=== PATIENT | female | born 1960 | race Caucasian/White ===

== ENCOUNTER 2021-07-29 06:53 | Day surgery (SDC) | payer BC ==
[2021-07-28 09:09] VITALS: BP 167/87
[~2021-07-29] VITALS: Ht 154.9 cm; Wt 66.7 kg
[2021-07-29] VITALS (14 sets, daily range): BP systolic 111–153; BP diastolic 64–90
[~2021-07-29 06:53] MED LIST: FLUO10TA3 PO; IBUP-2733 PO; LANS15CA13 PO; LEVO25CA4 PO
[2021-07-29] MEDS ORDERED: MIDAZOLAM HCL 1 MG/ML 2ML VIAL ONE (07:30)
[2021-07-29] MEDS ORDERED: PROPOFOL 10 MG/ML 20ML VIAL IV ONE (07:30)
[2021-07-29] MEDS ORDERED: MEPERIDINE-PF 25 MG/ML SYG ONE (07:31)
[2021-07-29 07:32] LABS: BASOPHILS % (AUTO) 1.7 % (0.0-5.0); EOSINOPHILS % (AUTO) 8.9 % (0.0-8.0); HEMATOCRIT 29.2 % (36-48); LYMPHOCYTES % (AUTO) 40.5 % (21.0-51.0); MEAN CORPUSCULAR HEMOGLOBIN 26.2 pg (27.0-33.0); MEAN CORPUSCULAR HGB CONC 31.2 g/dL (32.0-36.0); MEAN CORPUSCULAR VOLUME 84.1 fL (79-99); MONOCYTES % (AUTO) 11.8 % (3.0-13.0); NEUTROPHILS % (AUTO) 36.9 % (40.0-77.0); PLATELET COUNT (AUTO) 315 K/uL (130-400); RED BLOOD CELL COUNT(AUTO) 3.47 MIL/uL (4.00-5.50); RED CELL DISTRIBUTION WIDTH 17.4 % (11.0-15.5); WHITE BLOOD COUNT (AUTO) 4.6 K/uL (4.8-10.8)
[2021-07-29] MEDS ORDERED: FENTANYL CITRATE PF 50 MCG/1 ML 5ML AMP IV ONE (07:33)
[2021-07-29] MEDS ORDERED: LACTATED RINGERS 1000ML 1,000 ML IV ONE (07:47)
[2021-07-29] MEDS ORDERED: ROCURONIUM 10MG/1ML SYR 10 MG/ML ML ONE ×2 (07:54→08:24)
[2021-07-29] MEDS: CALDOLOR 800MG+NS 250ML 250 ML IV PRN ×2 (08:07→08:15)
[2021-07-29] MEDS: CEFAZOLIN SODIUM 1 GM VIAL ONE ×2 (08:08→08:25)
[2021-07-30] MEDS ORDERED: LACTATED RINGERS 1000ML 1,000 ML IV SCH (08:00)
[2021-07-30] MEDS ORDERED: CEFAZOLIN SODIUM 1 GM VIAL IVP ONE (08:00)
== END 2021-07-29 10:10 | disposition home or self-care (01) ==
LOC: DAH 06:53 → SUH 06:53
PROVIDERS: ATTEND Obstetrics & Gynecology
DX: N95.0 Postmenopausal bleeding (principal); Z20.822 Contact with and (suspected) exposure to COVID-19; N84.0 Polyp of corpus uteri; N81.4 Uterovaginal prolapse, unspecified; F41.9 Anxiety disorder, unspecified; F32.9 Major depressive disorder, single episode, unspecified; E03.9 Hypothyroidism, unspecified; I48.91 Unspecified atrial fibrillation; K21.9 Gastro-esophageal reflux disease without esophagitis; M19.90 Unspecified osteoarthritis, unspecified site; Z98.84 Bariatric surgery status; Z98.890 Other specified postprocedural states; Z83.438 Family history of other disorder of lipoprotein metabolism and other lipidemia; Z83.42 Family history of familial hypercholesterolemia; Z80.8 Family history of malignant neoplasm of other organs or systems; Z82.49 Family history of ischemic heart disease and other diseases of the circulatory system; Z83.3 Family history of diabetes mellitus; Z79.899 Other long term (current) drug therapy; Z79.890 Hormone replacement therapy
CPT/HCPCS: 36415; 58558; 85025; 86850; 86900; 86901; 87635; A4215; A4221; A4222; A4223; A4351; A4355; A4663; A6260; C9803; J0690; J1741; J2175; J2250; J2704; J3010; J7030 ×2; J7120

== ENCOUNTER 2022-06-24 20:02 | Inpatient (IN) | payer BC ==
[~2022-06-24] VITALS: Ht 160 cm; Wt 68.1 kg
[2022-06-24 20:32] LABS: BILIRUBIN,URINE SMALL (NEGATIVE); GLUCOSE, URINE (UA) NEGATIVE (NEGATIVE); KETONES,URINE 5 mg/dL (NEGATIVE); LEUKOCYTE ESTERASE ,URINE MODERATE (NEGATIVE); NITRATE,URINE NEGATIVE (NEGATIVE); OCCULT BLOOD,URINE LARGE (NEGATIVE); PH,URINE 6.5 (5.0-8.0); PROTEIN,URINE 100 mg/dL (NEGATIVE); UROBILINOGEN,URINE 0.2 mg/dL (0.2-1.0)
[2022-06-24 20:36] LABS: APPEARANCE,URINE CLOUDY (CLEAR); COLOR,URINE ORANGE (YELLOW)
[2022-06-24 20:37] LABS: BASOPHILS % (AUTO) 1.1 % (0.0-5.0); EOSINOPHILS % (AUTO) 7.4 % (0.0-8.0); HEMATOCRIT 25.3 % (36-48); LYMPHOCYTES % (AUTO) 33.4 % (21.0-51.0); MEAN CORPUSCULAR HEMOGLOBIN 20.7 pg (27.0-33.0); MEAN CORPUSCULAR HGB CONC 28.9 g/dL (32.0-36.0); MEAN CORPUSCULAR VOLUME 71.7 fL (79-99); MONOCYTES % (AUTO) 10.8 % (3.0-13.0); NEUTROPHILS % (AUTO) 47.1 % (40.0-77.0); PLATELET COUNT (AUTO) 436 K/uL (130-400); RED BLOOD CELL COUNT(AUTO) 3.53 MIL/uL (4.00-5.50); RED CELL DISTRIBUTION WIDTH 23.6 % (11.0-15.5); WHITE BLOOD COUNT (AUTO) 6.2 K/uL (4.8-10.8)
[2022-06-24 20:45] LABS: BACTERIA,URINE Few /HPF (None Seen); RBC,URINE >100 /HPF (0-1); WBC,URINE 26-50 /HPF (0-1)
[2022-06-24] MEDS ORDERED: 0.9% NACL 500ML IV.SOLN 500 ML IV ONE (21:00)
[2022-06-24] MEDS ORDERED: KETOROLAC 15MG/ML VIAL (15MG/ML) IV ONE (21:00)
[2022-06-24] MEDS ORDERED: CEFTRIAXONE 1G VIAL IVP ONE (21:00)
[2022-06-24 21:25] LABS: CREATININE 0.7 mg/dL (0.5-1.5); POTASSIUM 3.3 mmol/L (3.5-5.1)
[2022-06-24 21:34] LABS: ALBUMIN 3.2 g/dL (3.5-5.0); TOTAL PROTEIN, SERUM 6.5 g/dL (6.0-8.3)
[2022-06-24] MEDS ORDERED: TRAMADOL HCL 50 MG TABLET PO PRN (22:30)
[2022-06-24] MEDS ORDERED: MAG/ALUM/SIMETH 30 ML UDCUP PO PRN (22:30)
[2022-06-24] MEDS ORDERED: MORPHINE 4 MG SYG IV PRN (22:30)
[2022-06-24] MEDS ORDERED: KCL 20 MEQ ERTAB PO ONE (22:30)
[2022-06-24] MEDS ORDERED: ACETAMINOPHEN 325 MG TAB PO PRN ×2 (22:30)
[2022-06-24] MEDS: CEFTRIAXONE 1G VIAL IV SCH (22:30)
[2022-06-24] MEDS ORDERED: GUAIFENESIN-DM 200/20 MG 10 ML PO PRN (22:30)
[2022-06-24] MEDS ORDERED: ZOLPIDEM TARTRATE 5 MG TAB PO PRN (22:30)
[2022-06-24] MEDS ORDERED: DiphenhydrAMINE HCL 50 MG/ML VIAL IV PRN (22:30)
[2022-06-24] MEDS ORDERED: ONDANSETRON 4MG INJ IV PRN (22:30)
[2022-06-24] MEDS ORDERED: LACTULOSE 20 GM/30 ML UDCUP PO PRN (22:30)
[2022-06-24] MEDS: 0.9%NACL 1000ML 1,000 ML IV SCH (22:44)
[2022-06-24] MEDS ORDERED: TAMS-1 PO (23:19)
[2022-06-24] MEDS ORDERED: FAMO40TA7 PO (23:19)
[2022-06-24] MEDS ORDERED: LEVO25CA4 PO (23:19)
[2022-06-24] MEDS ORDERED: OMEP40CA21 PO (23:19)
[2022-06-25 03:45] LABS: HEMATOCRIT 26.9 % (36-48); MEAN CORPUSCULAR HEMOGLOBIN 21.9 pg (27.0-33.0); MEAN CORPUSCULAR HGB CONC 29.7 g/dL (32.0-36.0); MEAN CORPUSCULAR VOLUME 73.7 fL (79-99); RED BLOOD CELL COUNT(AUTO) 3.65 MIL/uL (4.00-5.50); RED CELL DISTRIBUTION WIDTH 22.4 % (11.0-15.5); WHITE BLOOD COUNT (AUTO) 5.8 K/uL (4.8-10.8)
[2022-06-25 03:50] VITALS: BP 170/72
[2022-06-25 04:23] LABS: CREATININE 0.7 mg/dL (0.5-1.5); POTASSIUM 4.1 mmol/L (3.5-5.1)
[2022-06-25] MEDS: LEVOTHYROXINE 25 MCG TABLET PO SCH (06:16)
[2022-06-25] MEDS: FAMOTIDINE 20MG VIAL IV SCH ×2 (08:57→20:57)
[2022-06-25] MEDS: TAMSULOSIN HCL 0.4 MG CAP.ER.24H PO SCH (08:57)
[2022-06-25] MEDS: 0.9%NACL 1000ML 1,000 ML IV SCH (08:58)
[2022-06-25 09:35] VITALS: BP 168/84
[2022-06-25 13:50] VITALS: BP 134/81
[2022-06-25 16:00] VITALS: BP 168/91
[2022-06-25 19:59] LABS: HEMATOCRIT 24.9 % (36-48)
[2022-06-25 20:27] VITALS: BP 140/77
[2022-06-25] MEDS: CEFTRIAXONE 1G VIAL IV SCH (20:57)
[2022-06-26 00:53] VITALS: BP 153/59
[2022-06-26 02:12] LABS: HEMATOCRIT 23.7 % (36-48)
[2022-06-26 04:51] VITALS: BP 148/53
[2022-06-26] MEDS: 0.9%NACL 1000ML 1,000 ML IV SCH (05:15)
[2022-06-26] MEDS: LEVOTHYROXINE 25 MCG TABLET PO SCH (06:30)
[2022-06-26 08:00] VITALS: BP 142/88
[2022-06-26] MEDS ORDERED: EPOETIN ALFA-EPBX (NON-ESRD) 10,000 UNIT/ML VIAL SQ SCH (08:00)
[2022-06-26] MEDS ORDERED: COMPOUND IV MISC 1 EACH IVSOLN MISC PRN (08:30)
[2022-06-26] MEDS: FAMOTIDINE 20MG VIAL IV SCH ×2 (08:47→21:12)
[2022-06-26] MEDS: TAMSULOSIN HCL 0.4 MG CAP.ER.24H PO SCH (08:47)
[2022-06-26 08:50] LABS: HEMATOCRIT 25.3 % (36-48)
[2022-06-26] MEDS ORDERED: IRON SUCROSE COMPLEX 500 MG in 0.9%NACL 50ML 50 ML IV SCH (09:00)
[2022-06-26 11:29] VITALS: BP 168/87
[2022-06-26 16:00] VITALS: BP 133/80
[2022-06-26 20:21] VITALS: BP 140/83
[2022-06-26] MEDS: CEFTRIAXONE 1G VIAL IV SCH (21:13)
[2022-06-27 00:38] VITALS: BP 148/87
[2022-06-27 04:46] VITALS: BP 119/68
[2022-06-27 04:59] LABS: BASOPHILS % (AUTO) 0.8 % (0.0-5.0); EOSINOPHILS % (AUTO) 8.9 % (0.0-8.0); HEMATOCRIT 24.6 % (36-48); LYMPHOCYTES % (AUTO) 25.9 % (21.0-51.0); MEAN CORPUSCULAR HEMOGLOBIN 21.8 pg (27.0-33.0); MEAN CORPUSCULAR HGB CONC 29.3 g/dL (32.0-36.0); MEAN CORPUSCULAR VOLUME 74.5 fL (79-99); NEUTROPHILS % (AUTO) 54.9 % (40.0-77.0); PLATELET COUNT (AUTO) 296 K/uL (130-400); WHITE BLOOD COUNT (AUTO) 6.7 K/uL (4.8-10.8)
[2022-06-27 05:07] LABS: CREATININE 0.6 mg/dL (0.5-1.5); POTASSIUM 3.8 mmol/L (3.5-5.1)
[2022-06-27] MEDS: LEVOTHYROXINE 25 MCG TABLET PO SCH (06:29)
[2022-06-27 08:00] VITALS: BP 142/81
[2022-06-27] MEDS: TAMSULOSIN HCL 0.4 MG CAP.ER.24H PO SCH (09:04)
[2022-06-27] MEDS: FAMOTIDINE 20MG VIAL IV SCH (09:04)
[2022-06-27] MEDS ORDERED: AMOX-426 PO (11:25)
[2022-06-27] MEDS ORDERED: FERR324T4 PO (11:25)
[2022-06-27 12:00] VITALS: BP 156/85
[2022-06-27 16:00] VITALS: BP 142/80
[2022-06-27 20:32] VITALS: BP 137/76
== END 2022-06-27 21:11 | disposition home or self-care (01) | DRG 812 ==
LOC: EDH 20:02 → EDHIP 22:19 → 3AH 06-25 03:50
PROVIDERS: ADMIT Hospitalist; ATTEND Hospitalist
PROC: 30233N1 Transfusion of Nonautologous Red Blood Cells into Peripheral Vein, Percutaneous Approach (ICD-10-PCS; principal; 2022-06-24)
DX: D50.9 Iron deficiency anemia, unspecified (principal); N39.0 Urinary tract infection, site not specified; K90.9 Intestinal malabsorption, unspecified; I48.20 Chronic atrial fibrillation, unspecified; R31.0 Gross hematuria; N20.0 Calculus of kidney; E87.6 Hypokalemia; E78.2 Mixed hyperlipidemia; E03.9 Hypothyroidism, unspecified; K21.9 Gastro-esophageal reflux disease without esophagitis; Z87.442 Personal history of urinary calculi; Z90.710 Acquired absence of both cervix and uterus; Z98.84 Bariatric surgery status; M19.90 Unspecified osteoarthritis, unspecified site; Z83.3 Family history of diabetes mellitus; Z82.49 Family history of ischemic heart disease and other diseases of the circulatory system; Z85.038 Personal history of other malignant neoplasm of large intestine; Z85.42 Personal history of malignant neoplasm of other parts of uterus
CPT/HCPCS: 36415; 80048; 80053; 81001; 82607; 82728; 82746; 83540; 83550; 83615; 85014; 85018; 85025; 85027; 86038; 86334; 86850; 86900; 86901; 86923; 87088; G0378; J0696; J1756; J1885; J3490; J7030; J7040; P9016